=== PATIENT | male | born 1985 | race African-American/Black ===

== ENCOUNTER 2016-10-14 12:35 | Emergency (ER) | payer OTHER ==
[2016-10-14 12:41] VITALS: BP 111/82; PULSE 84; TEMP 98; BMI 20.7
[2016-10-14] MEDS ORDERED: KETOROLAC TROMETHAMINE 60 MG/2 ML VIAL IM ONE (14:17)
[2016-10-14] MEDS ORDERED: KETOROLAC TROMETHAMINE 60 MG/2 ML VIAL ONE (14:24)
[2016-10-14 14:40] LABS: URINE APPEARANCE CLEAR; URINE BILIRUBIN NEGATIVE (NEGATIVE); URINE BLOOD NEGATIVE (NEGATIVE); URINE COLOR LTYELLOW; URINE GLUCOSE (UA) NEGATIVE (NEGATIVE); URINE KETONE NEGATIVE (NEGATIVE); URINE LEUK ESTERASE NEGATIVE (NEGATIVE); URINE NITRITE NEGATIVE (NEGATIVE); URINE PROTEIN NEGATIVE (NEGATIVE); URINE UROBILINOGEN NEGATIVE E.U./dl (0.2-1.0)
--- NOTE | 2016-10-14 15:29 | PDOC ---
History of Present Illness - General Chief Complaint: Lightheaded Stated Complaint: BACK PAIN, DIZZY Time Seen by Provider: 10/14/16 14:00 History Source: Patient Exam Limitations: No Limitations - History of Present Illness Initial Comments: 10/14/16 14:24 31-year-old male presents the ED with complaints of right neck pain radiating to his right shoulder and right arm. Patient states pain is so severe and unrelieved with Tylenol that is causing him dizziness. Patient denies headache, visual changes, posterior neck pain difficulty swallowing, chest pain, shortness of breath fever or chills. Patient states history of neck pain but states has not followed up with anyone in regards to a precise diagnosis. Patient denies any aggravating factors when pain began 3 days ago. Timing/Duration: other Severity: moderate Associated Symptoms: reports: other Past History - Past Medical History Allergies/Adverse Reactions: Allergies Allergy/AdvReac Type Severity Reaction Status Date / Time No Known Allergies Allergy Verified 10/14/16 12:38 Home Medications: Ambulatory Orders No Home Medications 0 dose .ROUTE UTDICT 08/03/12 - Psycho/Social/Smoking Cessation Hx Anxiety: No Suicidal Ideation: No Smoking Status: Yes Smoking History: Never smoked Have you smoked in the past 12 months: No Number of Cigarettes Smoked Daily: 0 Information on smoking cessation initiated: No Hx Alcohol Use: No Drug/Substance Use Hx: No Substance Use Type: None Patient Lives Alone: No Lives with/in: spouse/SO Review of Systems - Review of Systems Able to Perform ROS?: Yes Constitutional: No: Symptoms Reported HEENTM: No: Symptoms Reported Respiratory: No: Symptoms reported Cardiac (ROS): No: Symptoms Reported ABD/GI: No: Symptoms Reported : No: Symptoms Reported Musculoskeletal: Yes: Joint Pain, Neck Pain (right upper back) Integumentary: No: Symptoms Reported Neurological: Yes: Dizziness (with pain earlier today) *Physical Exam - Vital Signs Last Vital Signs Temp Pulse Resp BP Pulse Ox 98.0 F 84 18 111/82 100 10/14/16 12:39 10/14/16 12:39 10/14/16 12:39 10/14/16 12:39 10/14/16 12:39 - Physical Exam General Appearance: Yes: Nourished, Appropriately Dressed. No: Apparent Distress HEENT: positive: EOMI, MARITZA. negative: Pale Conjunctivae Neck: positive: Supple, Tender lateral (right SCM), Tender midline (C5). negative: Decreased range of motion Respiratory/Chest: positive: Lungs Clear, Normal Breath Sounds. negative: Chest Tender, Respiratory Distress, Accessory Muscle Use Cardiovascular: positive: Regular Rhythm, Regular Rate. negative: Murmur Gastrointestinal/Abdominal: positive: Soft. negative: Tenderness Extremity: positive: Normal Capillary Refill, Normal Inspection, Normal Range of Motion. negative: Tender Integumentary: positive: Normal Color, Warm, Moist Neurologic: positive: Motor Strength 5/5 (shoulder shrug bilateral) ED Treatment Course - ADDITIONAL ORDERS Additional order review: Laboratory Results 10/14/16 14:04 Urine Color Ltyellow Urine Appearance Clear Urine pH 6.0 Ur Specific [place] 1.018 Urine Protein Negative Urine Glucose (UA) Negative Urine Ketones Negative Urine Blood Negative Urine Nitrite Negative Urine Bilirubin Negative Urine Urobilinogen Negative Ur Leukocyte Esterase Negative - RADIOLOGY Radiology Studies Ordered: Category Date Time Status SPINE-CERVICAL [RAD] Stat Radiology 10/14/16 14:17 Completed - Medications Given in the ED: ED Medications Discontinued Medications Generic Name Dose Route Start Last Admin Trade Name Freq PRN Reason Stop Dose Admin Ketorolac Tromethamine 60 mg 10/14/16 14:17 10/14/16 14:31 Toradol Injection - IM 10/14/16 14:18 60 mg ONCE ONE Administration Medical Decision Making - Medical Decision Making 10/14/16 14:27 Pt with complaints of right neck and right back pain for the past 3 days worsened with movement unrelieved with Tylenol. Vitamin tenderness in the right SCM and C5. Patient had no scapular or right shoulder discomfort with full mobility of the right upper extremity. Patient ordered for Toradol and cervical spine x-ray 10/14/16 15:28 Cervical x-ray negative. Patient states that after Toradol. Patient will be discharged home with or the referral and prescription for Percocet *DC/Admit/Observation/Transfer Diagnosis at time of Disposition: Neck pain on right side - Discharge Dispostion Disposition: HOME Condition at time of disposition: Good - Referrals Referrals: Sixto Linda MD [Primary Care Provider] - Pete Degroot MD [Staff Physician] - - Patient Instructions Printed Discharge Instructions: DI for Musculoskeletal Pain Additional Instructions: Take Percocet as needed for discomfort but do not operate any heavy machinery while taking this. Please follow up with referred orthopedist. Avoid movements that triggered discomfort. Return to ED if symptoms worsen despite above recommendations.
== END 2016-10-14 15:38 | disposition home or self-care (01) ==
LOC: JER 12:35
PROC: 3E0233Z Introduction of Anti-inflammatory into Muscle, Percutaneous Approach (ICD-10-PCS; principal; 2016-10-14)
DX: M54.2 Cervicalgia (principal)
CPT/HCPCS: 72050-TC; 81003; 99282-25

== ENCOUNTER 2019-04-25 21:37 | Emergency (ER) | payer OTHER ==
[2019-04-25 21:46] VITALS: BP 124/75; PULSE 76; TEMP 98.3; BMI 25.3
--- NOTE | 2019-04-25 22:13 | PDOC ---
History of Present Illness - General Chief Complaint: Injury Stated Complaint: RT RIST PAIN Time Seen by Provider: 04/25/19 21:49 History Source: Patient Exam Limitations: No Limitations - History of Present Illness Initial Comments: 04/25/19 22:10 HISTORY OF PRESENT ILLNESS: 33-year-old male denies medical history of presents emergency department for evaluation of right wrist pain status post slip and fall on 04/24. Patient states she was walking then dark driveway when he slipped on some gravel falling off the side of the driveway into a drainage ditch. Patient has been taking ibuprofen and has placed a wrist splint prior to presentation to the emergency department. Currently rates his pain a 4/10 and describes as an aching throbbing feeling to the dorsum of his wrist. Patient reports his pain gets worse with extension of his right wrist. No recent travel or sick contacts. PAST MEDICAL HISTORY: Denies past medical history SURGICAL HISTORY: Denies ALLERGIES: No known drug allergies REVIEW OF SYSTEMS General/Constitutional: Denies fever or chills. Denies weakness, weight change. HEENT: Denies change in vision. Denies ear pain or discharge. Denies sore throat. Cardiovascular: Denies chest pain or shortness of breath. Respiratory: Denies cough, wheezing, or hemoptysis. Gastrointestinal: Denies nausea, vomiting, diarrhea or constipation. Denies rectal bleeding. Genitourinary: Denies dysuria, frequency, or change in urination. Musculoskeletal: see HPI Skin and breasts: Denies rash or easy bruising. Neurologic: Denies headache, vertigo, loss of consciousness, or loss of sensation. Psychiatric: Denies depression or anxiety. Endocrine: Denies increased thirst. Denies abnormal weight change. Hematologic/Lymphatic: Denies anemia, easy bleeding, or history of blood clots. Allergic/Immunologic: Denies hives or skin allergy. Denies latex allergy. PHYSICAL EXAM General Appearance: Well-appearing, appropriately dressed. No apparent distress , no intoxication. Respiratory/Chest: Lungs CTAB. No shortness of breath, chest tenderness, respiratory distress, accessory muscle use. No crackles, rales, rhonchi, stridor , wheezing, dullness Cardiovascular: RRR. S1, S2. No JVD, murmur, bradycardia, tachycardia. Vascular Pulses: radial (R): 2+, radial (L): 2+ Musculoskeletal/Extremities: Swelling present over the dorsum of the right wrist. No bony tenderness, crepitus or step off present to the bones of the right forearm, right wrist or right hand. Full pronation and supination performed passively without eliciting pain. Increased pain with extension of the right wrist. No difficulties with flexion. Integumentary: Multiple abrasions present to the palmar surface of bilateral hands. Neurologic: director selection and administration II-XII intact. Fully oriented, alert. Appropriate mood/affect. Motor strength 5/5. No appreciable EOM palsy, facial droop or sensory deficit. Past History - Past Medical History Allergies/Adverse Reactions: Allergies Allergy/AdvReac Type Severity Reaction Status Date / Time No Known Allergies Allergy Verified 04/25/19 21:41 Home Medications: Ambulatory Orders NK [No Known Home Medication] 10/20/16 COPD: No DVT: No Dementia: No Diabetes: No Psychiatric Problems: Yes (ANXIETY) - Immunization History Immunization Up to Date: No - Suicide/Smoking/Psychosocial Hx Smoking Status: Yes Smoking History: Never smoked Have you smoked in the past 12 months: No Number of Cigarettes Smoked Daily: 0 Information on smoking cessation initiated: No Hx Alcohol Use: No Drug/Substance Use Hx: No Substance Use Type: None *Physical Exam - Vital Signs Last Vital Signs Temp Pulse Resp BP Pulse Ox 98.3 F 76 20 124/75 98 04/25/19 21:42 04/25/19 21:42 04/25/19 21:42 04/25/19 21:42 04/25/19 21:42 ED Treatment Course - RADIOLOGY Radiology Studies Ordered: Category Date Time Status WRIST W/HAND-RIGHT* [RAD] Stat Radiology 04/25/19 22:09 Ordered Medical Decision Making - Medical Decision Making 04/25/19 22:12 A/P: 33-year-old male with right wrist pain status post slip and fall Most likely a sprain, I will get an x-ray to rule out fracture No snuffbox tenderness present Patient is refusing analgesics at this time reassess 04/25/19 22:30 X-rays as read by me: No acute fractures or dislocations present. Continue with wrist splint Tylenol and Motrin [id number] for pain Orthopedics for follow-up. 04/27/19 17:33 *DC/Admit/Observation/Transfer Diagnosis at time of Disposition: Right wrist sprain Qualifiers: Encounter type: initial encounter Qualified Code(s): S63.501A - Unspecified sprain of right wrist, initial encounter - Discharge Dispostion Disposition: HOME Condition at time of disposition: Stable Decision to Admit order: No - Referrals Referrals: Dre Moreland MD [Staff Physician] - - Patient Instructions Additional Instructions: Rest. Take Tylenol or Motrin as needed for pain. Follow manufacturers instructions for appropriate dosage. Apply ice for 20 minutes and removed for at least 20 minutes before reapplying the ice. Keep splint on your wrist as much as possible. Whenever possible keep your hand elevated. You've been given the number for an orthopedist. If symptoms do not resolve within the next 7 days call the orthopedist for further evaluation. Return to emergency department for discoloration of the fingers, numbness or tingling to the fingers, worsening pain, or any other concerns. Thank you very much for choosing us to provide your emergent healthcare needs. - Post Discharge Activity Forms/Work/School Notes: Back to Work
--- NOTE | 2019-04-26 13:14 | PDOC ---
Patient Follow-up (Call Back) - Post ED Follow - Up Condition at time of discharge: Stable Disposition at time of original discharge: HOME Reason for Call Back: Radiology (Received call from radiology and states + fx. Called pt on cell # and left message to call back)
== END 2019-04-25 22:35 | disposition home or self-care (01) ==
LOC: JERFT 21:37
DX: S63.501A Unspecified sprain of right wrist, initial encounter (principal); W01.0XXA Fall on same level from slipping, tripping and stumbling without subsequent striking against object, initial encounter; Y93.89 Activity, other specified; Y92.89 Other specified places as the place of occurrence of the external cause; F41.9 Anxiety disorder, unspecified
CPT/HCPCS: 73110-TC-RT-FY; 73130-TC-RT-FY; 99281-25